=== PATIENT | female | born 1980 | race Caucasian/White ===

== ENCOUNTER 2017-01-12 08:00 | Inpatient (IN) | payer BC ==
[2017-01-12] MEDS ORDERED: Sodium Chloride 0.9% 10 ML Syringe FLUSH PRN (09:59)
[2017-01-12] MEDS ORDERED: ceFAZolin 1 GM in Premix Bag 1 BAG IV ONE (09:59)
[2017-01-12] MEDS ORDERED: Sodium Chloride 0.9% 2.5 ML Syringe FLUSH PRN (09:59)
[2017-01-12] MEDS ORDERED: Citric Acid/Sodium Citrate Solution 30 ML Cup PO SCH (10:00)
[2017-01-12] MEDS: Lactated Ringers 1,000 ML IV SCH ×3 (10:26→11:44)
[2017-01-12] MEDS ORDERED: Octyl 2-Cyanoacrylate 1 Tube ONE ×2 (11:02→13:03)
--- NOTE | 2017-01-12 11:17 | PCM.PREANE ---
Preanesthetic Assessment - Procedure Proposed Procedure: (4th) with BTL (consented and approved) - Anesthesia/Transfusion/Family Hx Anesthesia History: Prior Anesthesia Reaction (easily "pukes", severe pruritis with last ) Type of Anesthesia Reaction: Other (see below) Other Type of Anesthesia Reaction Comment: pt states " I am a bleeder"; also very sensitive to low dose of medications Family History of Anesthesia Reaction: No Transfusion History: No Prior Transfusion(s) - Review of Systems General: No Symptoms Pulmonary: No Symptoms Cardiovascular: No Symptoms Gastrointestinal: No Symptoms, Other (GERD of ) Neurological: No Symptoms Other: Reports: Easy Bleeding (no documented mechanism) - Physical Assessment NPO Status Date: 01/11/17 NPO Status Time: 23:00 Height: 5 ft 2 in Weight: 157 lb ASA Class: 2 Mental Status: Alert & Oriented x3 Airway Class: Mallampati = 1 Dentition: Reports: Normal Dentition Thyro-Mental Finger Breadths: 3 Mouth Opening Finger Breadths: 3 ROM/Head Extension: Full Lungs: Clear to auscultation, Normal respiratory effort Cardiovascular: Regular Rate, Regular Rhythm, No Murmurs - Lab Values: Laboratory Last Values WBC 10.07 K/uL (4.0-11.0) 01/12/17 10:21 RBC 4.07 M/uL (4.30-5.90) L 01/12/17 10:21 Hgb 11.7 g/dL (12.0-16.0) L 01/12/17 10:21 Hct 35.1 % (36.0-46.0) L 01/12/17 10:21 MCV 86.2 fL (80.0-98.0) 01/12/17 10:21 MCH 28.7 pg (27.0-32.0) 01/12/17 10:21 MCHC 33.3 g/dL (31.0-37.0) 01/12/17 10:21 RDW Std Deviation 42.9 fl (28.0-62.0) 01/12/17 10:21 RDW Coeff of Sandra 14 % (11.0-15.0) 01/12/17 10:21 Plt Count 208 K/uL (150-400) 01/12/17 10:21 MPV 10.40 fL (7.40-12.00) 01/12/17 10:21 Nucleated RBC % 0.0 /100WBC 01/12/17 10:21 Nucleated RBCs # 0 K/uL 01/12/17 10:21 POC Glucose 73 mg/dL (60-110) 01/12/17 10:36 - Allergies Allergies/Adverse Reactions: Allergies Allergy/AdvReac Type Severity Reaction Status Date / Time No Known Allergies Allergy Verified 05/27/15 23:27 - Blood Blood Available: No - Anesthesia Plan Free Text/Narrative:: present with exam and interview; plans to be in OR for delivery. Pre-Op Medication Ordered: Antacids - Acknowledgements Anesthesia Type Planned: Spinal Pt an Appropriate Candidate for the Planned Anesthesia: Yes Alternatives and Risks of Anesthesia Discussed w Pt/Guardian: Yes Pt/Guardian Understands and Agrees with Anesthesia Plan: Yes PreAnesthesia Questionnaire Gastrointestinal History: Reports: None Genitourinary History: Reports: None CURRICULUM ASSISTANT History: Reports: Other OB/BYN History: CSx2 Musculoskeletal History: Reports: Fracture Psychiatric History: Reports: Anxiety Endocrine/Metabolic History: Reports: Diabetes, Gestational Other Hematologic History: anemia following pregnancies , states "I am a bleeder" Other Dermatologic History: Exczema - Past Surgical History Head Surgeries/Procedures: Reports: None HEENT Surgical History: Reports: LASIK Other HEENT Surgeries/Procedures: eye surgery(Lasik) GI Surgical History: Reports: Appendectomy Female Surgical History: Reports: Section Other Female Surgeries/Procedures: x 2 Other Musculoskeletal Surgeries/Procedures:: left wrist surgeryx2 - SUBSTANCE USE Smoking Status *Q: Never Smoker Recreational Drug Use History: No - HOME MEDS Home Medications: Home Meds Iron Tab 45 mg PO DAILY 01/07/17 [History] Vit W-Ca,Fe,FA(<1 mg) [ Vitamins] 1 tab PO DAILY 01/07/17 [ History] - CURRENT (IN HOUSE) MEDS Current Meds: Current Medications Citric Acid/Sodium Citrate (Bicitra Solution) 30 ml PO .ONCE CARLOS Lactated Ringer's (Ringers, Lactated) 1,000 mls @ 500 mls/hr IV .BOLUS CARLOS Last Admin: 01/12/17 10:26 Dose: 500 mls/hr Sodium Chloride (Saline Flush) 10 ml FLUSH ASDIRECTED PRN PRN Reason: Keep Vein Open Sodium Chloride (Saline Flush) 2.5 ml FLUSH ASDIRECTED PRN PRN Reason: Keep Vein Open Discontinued Medications Cefazolin Sodium/Dextrose 1 gm (/ Premix) 50 mls @ 100 mls/hr IV ONETIME ONE Stop: 01/12/17 10:28 Octyl Cyanoacrylate (Dermabond Advance) Confirm Administered Dose 1 applic .ROUTE .ST-MED ONE Stop: 01/12/17 11:03
[2017-01-12] MEDS ORDERED: Sodium Chloride 0.9% 20 ML ONE ×2 (11:20→11:58)
[2017-01-12] MEDS ORDERED: ePHEDrine 50 MG/ML SDV ONE (11:20)
[2017-01-12] MEDS ORDERED: Ondansetron 4 MG/2 ML SDV ONE (11:20)
[2017-01-12] MEDS ORDERED: Oxytocin 10 Units/1 ML SDV ONE (11:20)
[2017-01-12] MEDS ORDERED: Morphine PF 10 MG/10 ML SDV ONE (11:21)
[2017-01-12] MEDS ORDERED: ceFAZolin 1 GM Vial ONE (11:58)
[2017-01-12] MEDS ORDERED: Metoclopramide 10 MG/2 ML SDV ONE (12:09)
[2017-01-12] MEDS ORDERED: Lanolin 100% Cream 7 GM Tube TOP PRN (13:05)
[2017-01-12] MEDS ORDERED: diphenhydrAMINE 25 MG Cap PO PRN (13:05)
[2017-01-12] MEDS ORDERED: diphenhydrAMINE 50 MG/ML SDV IVPUSH PRN ×2 (13:05→13:15)
[2017-01-12] MEDS ORDERED: Aluminum Hydroxide/Magnesium Hydroxide/Simethicone Susp 30 ML Cup PO PRN (13:05)
[2017-01-12] MEDS ORDERED: Bisacodyl 10 MG Supp RECTAL PRN (13:05)
[2017-01-12] MEDS ORDERED: Simethicone 80 MG Tab.Chew PO PRN (13:05)
[2017-01-12] MEDS ORDERED: Naloxone 0.4 MG/ML Syringe IVPUSH PRN (13:15)
[2017-01-12] MEDS ORDERED: Nalbuphine 10 MG/1 ML Vial IVPUSH PRN (13:15)
[2017-01-12] MEDS ORDERED: Lactated Ringers 1,000 ML IV SCH (13:15)
--- NOTE | 2017-01-12 13:16 | PCM.OPNOTE ---
- General Post-Op/Procedure Note Date of Surgery/Procedure: 01/12/17 Operative Procedure(s): Repeat LTCS with bilateral salpingectomy Findings: Term female APGARs 8, 9 weight 3380 gm. Intact placenta with 3 v cord. Normal appearing ovaries. Right paratubal cyst noted Pre Op Diagnosis: 39 week IUP. Previous c section, desires repeat. Undesired fertility Post-Op Diagnosis: Same Anesthesia Technique: Spinal Primary Surgeon: Destinee Goff Pathology: fallopian tubes Fluid Replacement, Intraop: 1,800 EBL in mLs: 600 Condition: Good Free Text/Narrative:: Dictation [id number]
[2017-01-12] MEDS: Ketorolac 30 MG/ML SDV IVPUSH SCH ×2 (13:25→19:31)
--- NOTE | 2017-01-12 13:59 | PCM.POSTAN ---
POST ANESTHESIA ASSESSMENT - MENTAL STATUS Mental Status: Alert, Oriented - RESPIRATORY Respiratory Status: respiratory rate WNL, Airway Patent, O2 Saturation Stable - CARDIOVASCULAR CV Status: Pulse Rate WNL, Blood Pressure Stable - GASTROINTESTINAL GI Status: No Symptoms - PAIN Pain Score: 0 (spinal still in effect but receding) - POST OP HYDRATION Hydration Status: Adequate & Stable - OBSERVATIONS Free Text/Narrative:: Return to OB for bonding with new daughter.
[2017-01-12] MEDS ORDERED: fentaNYL 100 MCG/2 ML SDV IVPUSH PRN (15:58)
[2017-01-12] MEDS ORDERED: Acetaminophen/oxyCODONE 325-5 MG Tab PO PRN (15:58)
[2017-01-12] MEDS: Ondansetron 4 MG/2 ML SDV IV PRN (16:19)
[2017-01-12] MEDS: Docusate Sodium 100 MG Cap PO SCH (20:02)
--- NOTE | 2017-01-13 00:44 | OR ---
SURGEON: Destinee Goff M.D. DATE OF PROCEDURE: 01/12/2017 PREOPERATIVE DIAGNOSIS: 1. 39-week intrauterine . 2. Previous section x2, desires repeat. 3. Undesired fertility. POSTOPERATIVE DIAGNOSIS: 1. 39-week intrauterine . 2. Previous section x2, desires repeat. 3. Undesired fertility. PROCEDURES: Repeat low-transverse section with bilateral salpingectomy. ANESTHESIA: Spinal. ESTIMATED BLOOD LOSS: 600 mL. FLUIDS: 1800 mL crystalloid. COMPLICATIONS: None. FINDINGS: Term female, score 8 at 1 minute and 9 at 5 minutes, weight of 3380 g. Intact placenta, 3-vessel cord. Normal-appearing ovaries. Tubes normal- appearing, except for right paratubal cyst. Tubes are fairly significantly adhesed to the ovary, however. There are vesicouterine adhesions, and the lower uterine segment is very thin with peritoneal window identified upon entry. DISPOSITION: The patient to PACU, stable. Infant to nursery. INDICATIONS: Selin is a 36-year-old, G4, P3, at 39 weeks gestation, who presents today for scheduled repeat delivery. She also no longer has desired fertility and has had approval from the [facility] Committee for a tubal ligation at the time of the procedure. Risks of the procedure were discussed. Proper consent was obtained. The patient was taken to the operating room, where she underwent spinal anesthetic. She was placed in the dorsal supine position with leftward tilt. SCDs to the lower extremities. Ramos to gravity. She was prepped and draped in the usual sterile fashion. Received Ancef prophylactically. Time-out was performed. Anesthesia was tested and found to be adequate. Previous Pfannenstiel scar was now excised, and subcutaneous tissue was incised down to the level of the rectus fascia, which was incised in the midline lateralizing on either side sharply. The superior aspect of fascia was tented upward, dissected sharply and bluntly from the underlying muscles. In a similar aspect, this was performed in the inferior aspect of the fascia. Rectus muscles were now in the midline and dissected sharply and bluntly. The peritoneum was tented upward and entered sharply. The rectus muscles of the peritoneum were now gently bluntly lateralized. There were peritoneal adhesions along the uterus. These were gently lysed bluntly and sharply. Self-retaining retractors were now able to be placed after palpating the uterine position and position. At this juncture, there was basically no need for hysterotomy because a large peritoneal window was able to be identified. Therefore, a simple amniotomy was performed. The infant's head was flexed and delivered with fundal pressure being applied, followed by anterior shoulder, posterior shoulder, and remainder of the body. Infant's oropharynx and nares were suctioned. Cord clamped x2 and cut. Infant was handed off to attending nursing staff. Cord arterial, cord venous, cord blood sampling was obtained. Placenta was now delivered. Uterine cavity was cleared of all clot and debris. Hysterotomy was repaired using 0 Vicryl in a continuous running locked fashion, followed by a re-imbricating layer, and re-application along the midline with two [id number] sutures. Hemostasis was thereafter evident. Colonic gutters were cleared of all clot and debris, well irrigated, suctioned, and dried. Hemostasis was once again evident along the hysterotomy. Attention was now turned to performing the salpingectomies. The left fallopian tube was able to be identified. It was isolated with Luz clamps and using the handheld Harmonic, the salpingectomy was performed. There was some bleeding noted at the level of the cornua. This was repaired with two [id number] sutures using 3-0 chromic on an SH needle. Hemostasis was thereafter evident. The region was well irrigated, suctioned, and dried. The attention was now turned to perform the right salpingectomy. The tube was isolated with Luz clamps and excised using Harmonic. Hemostasis was there again evident. The uterus was now irrigated. Posterior aspect did not appear to have any defects or hematoma forming. The salpingectomy sites were inspected and found to be hemostatic. The uterus was returned to the abdominal cavity. Once again inspected the salpingectomy sites. Once again, they were found to be hemostatic. Hysterotomy was once again inspected and found to be hemostatic. Colonic gutters were once again cleared of all clot and debris, well irrigated, suctioned, and dried. The rectus muscle was now reapproximated using 0 Vicryl in an inverted mattress suture technique. Anterior aspect of the muscle and posterior aspect of the fascia were closely inspected. Any areas of oozing were cauterized. The rectus fascia was reapproximated using 0 Vicryl in a continuous running fashion beginning laterally on either side and meeting at the midline. Subcutaneous tissues were well irrigated, suction, and dried. Any areas of oozing were cauterized. The deep subcu tissue was reapproximated using 3-0 plain in a continuous running fashion. The skin edges reapproximated using 3-0 Vicryl on a Tolu needle and then Dermabond glue placed. Uterus remained firm. Sponge, instrument, and needle counts were correct x2. The patient had tolerated this procedure well. She will go to PACU in stable condition. Infant to nursery. The fallopian tube specimen was sent to pathology. MAURILIO / GENET /[id number]
[2017-01-13] MEDS: Ketorolac 30 MG/ML SDV IVPUSH SCH ×3 (01:03→13:42)
--- NOTE | 2017-01-13 08:32 | PCM.PNPP ---
<Joaquina Velasquez - Last Filed: 01/13/17 08:30> - General Info Date of Service: 01/13/17 Functional Status: Reports: Pain Controlled, Tolerating Diet, Ambulating, Urinating - Review of Systems General: Denies: Fever, Weakness, Fatigue Pulmonary: Denies: Shortness of Breath, Pleuritic Chest Pain, Cough Cardiovascular: Denies: Chest Pain, Palpitations, Dyspnea on Exertion Gastrointestinal: Denies: Abdominal Pain Genitourinary: Denies: Dysuria Psychiatric: Reports: No Symptoms - General Info Date of Service: 01/13/17 - Patient Data Vital Signs - most recent: Last Vital Signs Temp 36.8 C 01/13/17 08:00 Pulse 100 01/13/17 08:00 Resp 18 01/13/17 08:00 BP 109/56 L 01/13/17 08:00 Pulse Ox 96 01/13/17 08:00 Weight - most recent: 71.214 kg I&O - last 24 hours: Intake & Output 01/12/17 01/13/17 01/13/17 22:59 06:59 14:59 Intake Total 1600 Output Total 450 1200 1100 Balance -450 -1200 500 Lab Results - last 24 hrs: Laboratory Results - last 24 hr 01/12/17 01/12/17 01/12/17 Range/Units 10:21 10:21 10:36 WBC 10.07 (4.0-11.0) K/uL RBC 4.07 L (4.30-5.90) M/uL Hgb 11.7 L (12.0-16.0) g/dL Hct 35.1 L (36.0-46.0) % MCV 86.2 (80.0-98.0) fL MCH 28.7 (27.0-32.0) pg MCHC 33.3 (31.0-37.0) g/dL RDW Std Deviation 42.9 (28.0-62.0) fl RDW Coeff of Sandra 14 (11.0-15.0) % Plt Count 208 (150-400) K/uL MPV 10.40 (7.40-12.00) fL Nucleated RBC % 0.0 /100WBC Nucleated RBCs # 0 K/uL POC Glucose 73 (60-110) mg/dL Fasting Glucose (60-110) mg/dL Blood Type A NEGATIVE Antibody Screen NEGATIVE 01/13/17 01/13/17 Range/Units 05:01 05:01 WBC (4.0-11.0) K/uL RBC (4.30-5.90) M/uL Hgb 9.6 L (12.0-16.0) g/dL Hct 28.6 L (36.0-46.0) % MCV (80.0-98.0) fL MCH (27.0-32.0) pg MCHC (31.0-37.0) g/dL RDW Std Deviation (28.0-62.0) fl RDW Coeff of Sandra (11.0-15.0) % Plt Count (150-400) K/uL MPV (7.40-12.00) fL Nucleated RBC % /100WBC Nucleated RBCs # K/uL POC Glucose (60-110) mg/dL Fasting Glucose 102 (60-110) mg/dL Blood Type Antibody Screen Med Orders - Current: Current Medications Al Hydroxide/Mg Hydroxide (Mag-Al Plus) 30 ml PO Q8H PRN PRN Reason: Heartburn Bisacodyl (Dulcolax) 10 mg RECTAL .ONCE PRN PRN Reason: Constipation Citric Acid/Sodium Citrate (Bicitra Solution) 30 ml PO .ONCE CARLOS Last Admin: 01/12/17 11:32 Dose: 30 ml Diphenhydramine HCl (Benadryl) 25 mg IVPUSH Q6H PRN PRN Reason: Itching or Nausea Diphenhydramine HCl (Benadryl) 25 mg PO Q4H PRN PRN Reason: Itching Diphenhydramine HCl (Benadryl) 12.5 mg IVPUSH Q4H PRN PRN Reason: Itching Stop: 01/13/17 13:16 Docusate Sodium (Colace) 100 mg PO BID CARLOS Last Admin: 01/12/17 20:02 Dose: 100 mg Emollient Ointment (Lansinoh Hpa) 0 gm TOP ASDIRECTED PRN PRN Reason: Sore Nipples Fentanyl (Sublimaze) 50 mcg IVPUSH .Q60MIN PRN PRN Reason: Breakthough Pain Stop: 01/13/17 15:59 Lactated Ringer's (Ringers, Lactated) 1,000 mls @ 500 mls/hr IV .BOLUS CARLOS Last Admin: 01/12/17 11:44 Dose: 500 mls/hr Lactated Ringer's (Ringers, Lactated) 1,000 mls @ 125 mls/hr IV ASDIRECTED CARLOS Ibuprofen (Motrin) 800 mg PO Q8H PRN PRN Reason: mild pain or fever Ketorolac Tromethamine (Toradol) 30 mg IVPUSH Q6H CARLOS Stop: 01/13/17 13:16 Last Admin: 01/13/17 07:03 Dose: 30 mg Nalbuphine HCl (Nubain) 2.5 mg IVPUSH Q3H PRN PRN Reason: Pruritis Stop: 01/13/17 13:16 Naloxone HCl (Narcan) 0.1 mg IVPUSH ONETIME PRN PRN Reason: Respiratory Depression Stop: 01/13/17 13:16 Ondansetron HCl (Zofran) 4 mg IV Q4H PRN PRN Reason: Nausea/Vomiting Last Admin: 01/12/17 16:19 Dose: 4 mg Oxycodone/Acetaminophen (Percocet 325-5 Mg) 1 tab PO Q4H PRN PRN Reason: Pain (moderate 4-6) Oxycodone/Acetaminophen (Percocet 325-5 Mg) 2 tab PO Q4H PRN PRN Reason: Pain (moderate 4-6) Oxycodone/Acetaminophen (Percocet 325-5 Mg) 1 tab PO Q4H PRN PRN Reason: Breakthrough Pain Stop: 01/13/17 12:00 Last Admin: 01/12/17 16:18 Dose: 1 tab Simethicone (Simethicone) 80 mg PO Q4H PRN PRN Reason: Gas Sodium Chloride (Saline Flush) 10 ml FLUSH ASDIRECTED PRN PRN Reason: Keep Vein Open Sodium Chloride (Saline Flush) 2.5 ml FLUSH ASDIRECTED PRN PRN Reason: Keep Vein Open Discontinued Medications Cefazolin Sodium (Ancef) Confirm Administered Dose 2 gm .ROUTE .STK-MED ONE Stop: 01/12/17 11:59 Ephedrine Sulfate (Ephedrine Sulfate) Confirm Administered Dose 50 mg .ROUTE .STK-MED ONE Stop: 01/12/17 11:21 Glycopyrrolate () Confirm Administered Dose 1 mg .ROUTE .STK-MED ONE Stop: 01/12/17 12:07 Cefazolin Sodium/Dextrose 1 gm (/ Premix) 50 mls @ 100 mls/hr IV ONETIME ONE Stop: 01/12/17 10:28 Last Admin: 01/12/17 14:20 Dose: Not Given Sodium Chloride (Normal Saline) Confirm Administered Dose 20 mls @ as directed .ROUTE .STK-MED ONE Stop: 01/12/17 11:21 Sodium Chloride (Normal Saline) Confirm Administered Dose 20 mls @ as directed .ROUTE .STK-MED ONE Stop: 01/12/17 11:59 Metoclopramide HCl (Reglan) Confirm Administered Dose 10 mg .ROUTE .STK-MED ONE Stop: 01/12/17 12:10 Morphine Sulfate (Duramorph Pf) Confirm Administered Dose 10 mg .ROUTE .STK-MED ONE Stop: 01/12/17 11:22 Octyl Cyanoacrylate (Dermabond Advance) Confirm Administered Dose 1 applic .ROUTE .STK-MED ONE Stop: 01/12/17 11:03 Octyl Cyanoacrylate (Dermabond Advance) Confirm Administered Dose 1 applic .ROUTE .STK-MED ONE Stop: 01/12/17 13:04 Ondansetron HCl (Zofran) Confirm Administered Dose 4 mg .ROUTE .STK-MED ONE Stop: 01/12/17 11:21 Oxytocin (Pitocin) Confirm Administered Dose 20 unit .ROUTE .STK-MED ONE Stop: 01/12/17 11:21 - Interaction Disposition, : [place] in Room with Family Infant Interaction: Holding Infant Feeding: Bottle Fed Support Person: - Recovery Exam Fundal Tone: Firm Fundal Level: At Umbilicus Fundal Placement: Midline Lochia Amount: Scant Lochia Color: Rubra/Red Perineum Description: Intact, Minimal Bruising/Swelling Episiotomy/Laceration: None Bladder Status: Indwelling Catheter in Place Urinary Elimination: Indwelling Catheter - Exam General: alert, oriented Lungs: Clear to Auscultation, Normal Respiratory Effort Cardiovascular: Regular Rate, Regular Rhythm GI/Abdominal Exam: Normal Bowel Sounds Extremities: No Pedal Edema Psy/Mental Status: alert, normal affect, normal mood - Problem List Review Problem List Initiated/Reviewed/Updated: Yes - Assessment Assessment:: POD#1 from RLTCS with bilateral salpingectomy. Minimal pain and lochia. Aim for discharge tomorrow AM. - Plan Plan:: Continue routine post-op cares. Anticipate discharge home tomorrow. <ShellDestinee Evelina - Last Filed: 01/13/17 10:34> - Patient Data Vital Signs - most recent: Last Vital Signs Temp 36.7 C 01/13/17 09:27 Pulse 89 01/13/17 09:27 Resp 17 01/13/17 09:27 BP 110/62 01/13/17 09:27 Pulse Ox 97 01/13/17 09:27 I&O - last 24 hours: Intake & Output 01/12/17 01/13/17 01/13/17 22:59 06:59 14:59 Intake Total 1600 Output Total 450 1200 1100 Balance -450 -1200 500 Lab Results - last 24 hrs: Laboratory Results - last 24 hr 01/12/17 01/12/17 01/13/17 Range/Units 10:21 10:36 05:01 Hgb (12.0-16.0) g/dL Hct (36.0-46.0) % POC Glucose 73 (60-110) mg/dL Fasting Glucose 102 (60-110) mg/dL Blood Type A NEGATIVE Antibody Screen NEGATIVE 01/13/17 Range/Units 05:01 Hgb 9.6 L (12.0-16.0) g/dL Hct 28.6 L (36.0-46.0) % POC Glucose (60-110) mg/dL Fasting Glucose (60-110) mg/dL Blood Type Antibody Screen Med Orders - Current: Current Medications Al Hydroxide/Mg Hydroxide (Mag-Al Plus) 30 ml PO Q8H PRN PRN Reason: Heartburn Bisacodyl (Dulcolax) 10 mg RECTAL .ONCE PRN PRN Reason: Constipation Citric Acid/Sodium Citrate (Bicitra Solution) 30 ml PO .ONCE CARLOS Last Admin: 01/12/17 11:32 Dose: 30 ml Diphenhydramine HCl (Benadryl) 25 mg IVPUSH Q6H PRN PRN Reason: Itching or Nausea Diphenhydramine HCl (Benadryl) 25 mg PO Q4H PRN PRN Reason: Itching Diphenhydramine HCl (Benadryl) 12.5 mg IVPUSH Q4H PRN PRN Reason: Itching Stop: 01/13/17 13:16 Docusate Sodium (Colace) 100 mg PO BID [facility] Last Admin: 01/13/17 08:58 Dose: 100 mg Emollient Ointment (Lansinoh Hpa) 0 gm TOP ASDIRECTED PRN PRN Reason: Sore Nipples Fentanyl (Sublimaze) 50 mcg IVPUSH .Q60MIN PRN PRN Reason: Breakthough Pain Stop: 01/13/17 15:59 Lactated Ringer's (Ringers, Lactated) 1,000 mls @ 500 mls/hr IV .BOLUS [facility] Last Admin: 01/12/17 11:44 Dose: 500 mls/hr Lactated Ringer's (Ringers, Lactated) 1,000 mls @ 125 mls/hr IV ASDIRECTED [facility] Ibuprofen (Motrin) 800 mg PO Q8H PRN PRN Reason: mild pain or fever Ketorolac Tromethamine (Toradol) 30 mg IVPUSH Q6H [facility] Stop: 01/13/17 13:16 Last Admin: 01/13/17 07:03 Dose: 30 mg Nalbuphine HCl (Nubain) 2.5 mg IVPUSH Q3H PRN PRN Reason: Pruritis Stop: 01/13/17 13:16 Naloxone HCl (Narcan) 0.1 mg IVPUSH ONETIME PRN PRN Reason: Respiratory Depression Stop: 01/13/17 13:16 Ondansetron HCl (Zofran) 4 mg IV Q4H PRN PRN Reason: Nausea/Vomiting Last Admin: 01/12/17 16:19 Dose: 4 mg Oxycodone/Acetaminophen (Percocet 325-5 Mg) 1 tab PO Q4H PRN PRN Reason: Pain (moderate 4-6) Oxycodone/Acetaminophen (Percocet 325-5 Mg) 2 tab PO Q4H PRN PRN Reason: Pain (moderate 4-6) Oxycodone/Acetaminophen (Percocet 325-5 Mg) 1 tab PO Q4H PRN PRN Reason: Breakthrough Pain Stop: 01/13/17 12:00 Last Admin: 01/12/17 16:18 Dose: 1 tab Simethicone (Simethicone) 80 mg PO Q4H PRN PRN Reason: Gas Sodium Chloride (Saline Flush) 10 ml FLUSH ASDIRECTED PRN PRN Reason: Keep Vein Open Sodium Chloride (Saline Flush) 2.5 ml FLUSH ASDIRECTED PRN PRN Reason: Keep Vein Open Discontinued Medications Cefazolin Sodium (Ancef) Confirm Administered Dose 2 gm .ROUTE .STK-MED ONE Stop: 01/12/17 11:59 Ephedrine Sulfate (Ephedrine Sulfate) Confirm Administered Dose 50 mg .ROUTE .STK-MED ONE Stop: 01/12/17 11:21 Glycopyrrolate () Confirm Administered Dose 1 mg .ROUTE .STK-MED ONE Stop: 01/12/17 12:07 Cefazolin Sodium/Dextrose 1 gm (/ Premix) 50 mls @ 100 mls/hr IV ONETIME ONE Stop: 01/12/17 10:28 Last Admin: 01/12/17 14:20 Dose: Not Given Sodium Chloride (Normal Saline) Confirm Administered Dose 20 mls @ as directed .ROUTE .STK-MED ONE Stop: 01/12/17 11:21 Sodium Chloride (Normal Saline) Confirm Administered Dose 20 mls @ as directed .ROUTE .STK-MED ONE Stop: 01/12/17 11:59 Metoclopramide HCl (Reglan) Confirm Administered Dose 10 mg .ROUTE .STK-MED ONE Stop: 01/12/17 12:10 Morphine Sulfate (Duramorph Pf) Confirm Administered Dose 10 mg .ROUTE .STK-MED ONE Stop: 01/12/17 11:22 Octyl Cyanoacrylate (Dermabond Advance) Confirm Administered Dose 1 applic .ROUTE .STK-MED ONE Stop: 01/12/17 11:03 Octyl Cyanoacrylate (Dermabond Advance) Confirm Administered Dose 1 applic .ROUTE .STK-MED ONE Stop: 01/12/17 13:04 Ondansetron HCl (Zofran) Confirm Administered Dose 4 mg .ROUTE .STK-MED ONE Stop: 01/12/17 11:21 Oxytocin (Pitocin) Confirm Administered Dose 20 unit .ROUTE .STK-MED ONE Stop: 01/12/17 11:21 - My Orders Last 24 Hours: My Active Orders 01/12/17 09:59 Patient Status [ADT] Routine Up ad [place] [RC] ASDIRECTED Vital Signs [RC] Q4H Sodium Chloride 0.9% [Saline Flush] 10 ml FLUSH ASDIRECTED PRN Sodium Chloride 0.9% [Saline Flush] 2.5 ml FLUSH ASDIRECTED PRN Peripheral IV Insertion Adult [OM.PC] Routine Schedule Procedure [COMM] Per Unit Routine Resuscitation Status Routine 01/12/17 10:00 Citric Acid/Sodium Citrate [Bicitra Solution] 30 ml PO .ONCE Lactated Ringers [Ringers, Lactated] 1,000 ml IV .BOLUS 01/12/17 10:01 Notify Provider Vital Signs [RC] PRN 01/12/17 13:05 Ambulate [RC] PER UNIT ROUTINE Communication Order [RC] PER UNIT ROUTINE Communication Order [RC] PER UNIT ROUTINE Communication Order [RC] Per Unit Routine May Shower [RC] ASDIRECTED Notify Provider Intake and Out [RC] ASDIRECTED Notify Provider Vital Signs [RC] ASDIRECTED RT Incentive Spirometry [RC] Q2HWA Vital Signs [RC] PER UNIT ROUTINE Acetaminophen/oxyCODONE [Percocet 325-5 MG] 1 tab PO Q4H PRN Acetaminophen/oxyCODONE [Percocet 325-5 MG] 2 tab PO Q4H PRN Alum Hydrox/Mag Hydrox/Simeth [Mag-Al Plus] 30 ml PO Q8H PRN Bisacodyl [Dulcolax] 10 mg RECTAL .ONCE PRN Ibuprofen [Motrin] 800 mg PO Q8H PRN Lanolin [Lansinoh HPA] See Dose Instructions TOP ASDIRECTED PRN Ondansetron [Zofran] 4 mg IV Q4H PRN Simethicone 80 mg PO Q4H PRN diphenhydrAMINE [Benadryl] 25 mg IVPUSH Q6H PRN diphenhydrAMINE [Benadryl] 25 mg PO Q4H PRN Abdominal Binder [OM.PC] Routine Assess Lochia [WOMSER] Per Unit Routine Assess Uterine Involution [WOMSER] Per Unit Routine Breast Pump [WOMSER] Per Unit Routine Heat Therapy [OM.PC] Routine Ice Therapy [OM.PC] Routine Peripheral IV Discontinue [OM.PC] Routine Sequential Compression Device [OM.PC] Per Unit Routine 01/12/17 13:06 Antiembolic Devices [RC] PER UNIT ROUTINE 01/12/17 13:15 Ketorolac [Toradol] 30 mg IVPUSH Q6H Lactated Ringers [Ringers, Lactated] 1,000 ml IV ASDIRECTED 01/12/17 21:00 Docusate Sodium [Colace] 100 mg PO BID 01/12/17 Dinner Regular Diet [DIET] - Plan Plan:: patient seen and examined--agree with above.Dr Caldwell will cover patient in my absence
[2017-01-13] MEDS: Docusate Sodium 100 MG Cap PO SCH ×2 (08:58→20:08)
--- NOTE | 2017-01-13 13:42 | PCM48HPAN ---
Post Anesthesia Note - EVALUATION WITHIN 48HRS OF ANESTHETIC Vital Signs in Normal Range: Yes Patient Participated in Evaluation: Yes Respiratory Function Stable: Yes Airway Patent: Yes Cardiovascular Function Stable: Yes Hydration Status Stable: Yes Pain Control Satisfactory: Yes Nausea and Vomiting Control Satisfactory: Yes (No nausea (hx in all prior encounters)) Mental Status Recovered: Yes - COMMENTS/OBSERVATIONS Free Text/Narrative:: No problems. Mom and baby doing very well.
[2017-01-13] MEDS: Ondansetron 4 MG/2 ML SDV IV PRN (13:43)
[2017-01-13] MEDS: Acetaminophen/oxyCODONE 325-5 MG Tab PO PRN ×4 (15:47→20:11)
[2017-01-13] MEDS: Ibuprofen 800 MG Tab PO PRN (22:12)
[2017-01-14] MEDS: Acetaminophen/oxyCODONE 325-5 MG Tab PO PRN ×2 (02:58→10:08)
[2017-01-14] MEDS: Ibuprofen 800 MG Tab PO PRN (06:53)
[2017-01-14 08:21] VITALS: BP 112/59
--- NOTE | 2017-01-14 08:42 | PCM.PNPP ---
[id number] Status: Reports: Pain Controlled, Tolerating Diet, Ambulating - Review of Systems General: Denies: Fever, Weakness, Fatigue Pulmonary: Denies: Shortness of Breath, Pleuritic Chest Pain, Cough Cardiovascular: Denies: Chest Pain, Palpitations, Dyspnea on Exertion Gastrointestinal: Denies: Abdominal Pain Genitourinary: Denies: Dysuria Psychiatric: Reports: No Symptoms - General Info Date of Service: 01/14/17 - Patient Data Vital Signs - most recent: Last Vital Signs Temp 36.3 C 01/14/17 08:00 Pulse 66 01/14/17 08:00 Resp 18 01/14/17 08:00 BP 112/59 L 01/14/17 08:00 Pulse Ox 98 01/14/17 08:00 Weight - most recent: 71.214 kg I&O - last 24 hours: Intake & Output 01/13/17 01/14/17 01/14/17 22:59 06:59 14:59 Intake Total 440 1260 Output Total 1650 3900 Balance -1210 -2640 Med Orders - Current: Current Medications Al Hydroxide/Mg Hydroxide (Mag-Al Plus) 30 ml PO Q8H PRN PRN Reason: Heartburn Bisacodyl (Dulcolax) 10 mg RECTAL .ONCE PRN PRN Reason: Constipation Citric Acid/Sodium Citrate (Bicitra Solution) 30 ml PO .ONCE CARLOS Last Admin: 01/12/17 11:32 Dose: 30 ml Diphenhydramine HCl (Benadryl) 25 mg IVPUSH Q6H PRN PRN Reason: Itching or Nausea Diphenhydramine HCl (Benadryl) 25 mg PO Q4H PRN PRN Reason: Itching Docusate Sodium (Colace) 100 mg PO BID CARLOS Last Admin: 01/13/17 20:08 Dose: 100 mg Emollient Ointment (Lansinoh Hpa) 0 gm TOP ASDIRECTED PRN PRN Reason: Sore Nipples Lactated Ringer's (Ringers, Lactated) 1,000 mls @ 500 mls/hr IV .BOLUS CARLOS Last Admin: 01/12/17 11:44 Dose: 500 mls/hr Lactated Ringer's (Ringers, Lactated) 1,000 mls @ 125 mls/hr IV ASDIRECTED CARLOS Ibuprofen (Motrin) 800 mg PO Q8H PRN PRN Reason: mild pain or fever Last Admin: 01/14/17 06:53 Dose: 800 mg Ondansetron HCl (Zofran) 4 mg IV Q4H PRN PRN Reason: Nausea/Vomiting Last Admin: 01/13/17 13:43 Dose: 4 mg Oxycodone/Acetaminophen (Percocet 325-5 Mg) 1 tab PO Q4H PRN PRN Reason: Pain (moderate 4-6) Last Admin: 01/14/17 02:58 Dose: 1 tab Oxycodone/Acetaminophen (Percocet 325-5 Mg) 2 tab PO Q4H PRN PRN Reason: Pain (moderate 4-6) Simethicone (Simethicone) 80 mg PO Q4H PRN PRN Reason: Gas Sodium Chloride (Saline Flush) 10 ml FLUSH ASDIRECTED PRN PRN Reason: Keep Vein Open Sodium Chloride (Saline Flush) 2.5 ml FLUSH ASDIRECTED PRN PRN Reason: Keep Vein Open Discontinued Medications Cefazolin Sodium (Ancef) Confirm Administered Dose 2 gm .ROUTE .STK-MED ONE Stop: 01/12/17 11:59 Diphenhydramine HCl (Benadryl) 12.5 mg IVPUSH Q4H PRN PRN Reason: Itching Stop: 01/13/17 13:16 Ephedrine Sulfate (Ephedrine Sulfate) Confirm Administered Dose 50 mg .ROUTE .STK-MED ONE Stop: 01/12/17 11:21 Fentanyl (Sublimaze) 50 mcg IVPUSH .Q60MIN PRN PRN Reason: Breakthough Pain Stop: 01/13/17 15:59 Glycopyrrolate () Confirm Administered Dose 1 mg .ROUTE .STK-MED ONE Stop: 01/12/17 12:07 Cefazolin Sodium/Dextrose 1 gm (/ Premix) 50 mls @ 100 mls/hr IV ONETIME ONE Stop: 01/12/17 10:28 Last Admin: 01/12/17 14:20 Dose: Not Given Sodium Chloride (Normal Saline) Confirm Administered Dose 20 mls @ as directed .ROUTE .STK-MED ONE Stop: 01/12/17 11:21 Sodium Chloride (Normal Saline) Confirm Administered Dose 20 mls @ as directed .ROUTE .STK-MED ONE Stop: 01/12/17 11:59 Ketorolac Tromethamine (Toradol) 30 mg IVPUSH Q6H CRALOS Stop: 01/13/17 13:16 Last Admin: 01/13/17 13:42 Dose: 30 mg Metoclopramide HCl (Reglan) Confirm Administered Dose 10 mg .ROUTE .STK-MED ONE Stop: 01/12/17 12:10 Morphine Sulfate (Duramorph Pf) Confirm Administered Dose 10 mg .ROUTE .STK-MED ONE Stop: 01/12/17 11:22 Nalbuphine HCl (Nubain) 2.5 mg IVPUSH Q3H PRN PRN Reason: Pruritis Stop: 01/13/17 13:16 Naloxone HCl (Narcan) 0.1 mg IVPUSH ONETIME PRN PRN Reason: Respiratory Depression Stop: 01/13/17 13:16 Octyl Cyanoacrylate (Dermabond Advance) Confirm Administered Dose 1 applic .ROUTE .STK-MED ONE Stop: 01/12/17 11:03 Octyl Cyanoacrylate (Dermabond Advance) Confirm Administered Dose 1 applic .ROUTE .STK-MED ONE Stop: 01/12/17 13:04 Ondansetron HCl (Zofran) Confirm Administered Dose 4 mg .ROUTE .STK-MED ONE Stop: 01/12/17 11:21 Oxycodone/Acetaminophen (Percocet 325-5 Mg) 1 tab PO Q4H PRN PRN Reason: Breakthrough Pain Stop: 01/13/17 12:00 Last Admin: 01/12/17 16:18 Dose: 1 tab Oxytocin (Pitocin) Confirm Administered Dose 20 unit .ROUTE .STK-MED ONE Stop: 01/12/17 11:21 - Interaction Disposition, : in Room with Family Interaction: Holding Infant Feeding: Bottle Fed Support Person: - Recovery Exam Fundal Tone: Firm Fundal Level: At Umbilicus Fundal Placement: Midline Lochia Amount: Scant Lochia Color: Rubra/Red Perineum Description: Intact, Minimal Bruising/Swelling Episiotomy/Laceration: None Bladder Status: Indwelling Catheter in Place Urinary Elimination: Indwelling Catheter - Exam General: alert, oriented Lungs: Clear to Auscultation, Normal Respiratory Effort GI/Abdominal Exam: Normal Bowel Sounds, Soft, Non-Tender Extremities: Pedal Edema (trace) Psy/Mental Status: alert, normal affect, normal mood - Problem List Review Problem List Initiated/Reviewed/Updated: Yes - Assessment Assessment:: POD#2 from [facility] with bilateral salpingectomy. Minimal pain and lochia. Rx for Percocet has been sent to pharmacy by Dr. Goff. Discharge home today. - Plan Plan:: Discharge instructions reviewed. Nothing in the vagina for 6 weeks. RX for Percocet to use as needed for pain. No lifting greater than 10lbs for 6 weeks. Instructed patient to call if she develops fever greater than 101 or bleeding through a large pad an hour. F/U with [facility] in 2 and 6 weeks <Yuliet Caldwell - Last Filed: 01/14/17 10:05> - Patient Data Vital Signs - most recent: Last Vital Signs Temp 36.3 C 01/14/17 08:00 Pulse 66 01/14/17 08:00 Resp 18 01/14/17 08:00 BP 112/59 L 01/14/17 08:00 Pulse Ox 98 01/14/17 08:00 I&O - last 24 hours: Intake & Output 01/13/17 01/14/17 01/14/17 22:59 06:59 14:59 Intake Total 440 1260 Output Total 1650 3900 Balance -1210 -2640 Med Orders - Current: Current Medications Al Hydroxide/Mg Hydroxide (Mag-Al Plus) 30 ml PO Q8H PRN PRN Reason: Heartburn Bisacodyl (Dulcolax) 10 mg RECTAL .ONCE PRN PRN Reason: Constipation Citric Acid/Sodium Citrate (Bicitra Solution) 30 ml PO .ONCE [facility] Last Admin: 01/12/17 11:32 Dose: 30 ml Diphenhydramine HCl (Benadryl) 25 mg IVPUSH Q6H PRN PRN Reason: Itching or Nausea Diphenhydramine HCl (Benadryl) 25 mg PO Q4H PRN PRN Reason: Itching Docusate Sodium (Colace) 100 mg PO BID [facility] Last Admin: 01/14/17 09:47 Dose: 100 mg Emollient Ointment (Lansinoh Hpa) 0 gm TOP ASDIRECTED PRN PRN Reason: Sore Nipples Lactated Ringer's (Ringers, Lactated) 1,000 mls @ 500 mls/hr IV .BOLUS CARLOS Last Admin: 01/12/17 11:44 Dose: 500 mls/hr Lactated Ringer's (Ringers, Lactated) 1,000 mls @ 125 mls/hr IV ASDIRECTED CARLOS Ibuprofen (Motrin) 800 mg PO Q8H PRN PRN Reason: mild pain or fever Last Admin: 01/14/17 06:53 Dose: 800 mg Ondansetron HCl (Zofran) 4 mg IV Q4H PRN PRN Reason: Nausea/Vomiting Last Admin: 01/13/17 13:43 Dose: 4 mg Oxycodone/Acetaminophen (Percocet 325-5 Mg) 1 tab PO Q4H PRN PRN Reason: Pain (moderate 4-6) Last Admin: 01/14/17 02:58 Dose: 1 tab Oxycodone/Acetaminophen (Percocet 325-5 Mg) 2 tab PO Q4H PRN PRN Reason: Pain (moderate 4-6) Simethicone (Simethicone) 80 mg PO Q4H PRN PRN Reason: Gas Sodium Chloride (Saline Flush) 10 ml FLUSH ASDIRECTED PRN PRN Reason: Keep Vein Open Sodium Chloride (Saline Flush) 2.5 ml FLUSH ASDIRECTED PRN PRN Reason: Keep Vein Open Discontinued Medications Cefazolin Sodium (Ancef) Confirm Administered Dose 2 gm .ROUTE .STK-MED ONE Stop: 01/12/17 11:59 Diphenhydramine HCl (Benadryl) 12.5 mg IVPUSH Q4H PRN PRN Reason: Itching Stop: 01/13/17 13:16 Ephedrine Sulfate (Ephedrine Sulfate) Confirm Administered Dose 50 mg .ROUTE .STK-MED ONE Stop: 01/12/17 11:21 Fentanyl (Sublimaze) 50 mcg IVPUSH .Q60MIN PRN PRN Reason: Breakthough Pain Stop: 01/13/17 15:59 Glycopyrrolate () Confirm Administered Dose 1 mg .ROUTE .STK-MED ONE Stop: 01/12/17 12:07 Cefazolin Sodium/Dextrose 1 gm (/ Premix) 50 mls @ 100 mls/hr IV ONETIME ONE Stop: 01/12/17 10:28 Last Admin: 01/12/17 14:20 Dose: Not Given Sodium Chloride (Normal Saline) Confirm Administered Dose 20 mls @ as directed .ROUTE .STK-MED ONE Stop: 01/12/17 11:21 Sodium Chloride (Normal Saline) Confirm Administered Dose 20 mls @ as directed .ROUTE .STK-MED ONE Stop: 01/12/17 11:59 Ketorolac Tromethamine (Toradol) 30 mg IVPUSH Q6H CARLOS Stop: 01/13/17 13:16 Last Admin: 01/13/17 13:42 Dose: 30 mg Metoclopramide HCl (Reglan) Confirm Administered Dose 10 mg .ROUTE .STK-MED ONE Stop: 01/12/17 12:10 Morphine Sulfate (Duramorph Pf) Confirm Administered Dose 10 mg .ROUTE .STK-MED ONE Stop: 01/12/17 11:22 Nalbuphine HCl (Nubain) 2.5 mg IVPUSH Q3H PRN PRN Reason: Pruritis Stop: 01/13/17 13:16 Naloxone HCl (Narcan) 0.1 mg IVPUSH ONETIME PRN PRN Reason: Respiratory Depression Stop: 01/13/17 13:16 Octyl Cyanoacrylate (Dermabond Advance) Confirm Administered Dose 1 applic .ROUTE .STK-MED ONE Stop: 01/12/17 11:03 Octyl Cyanoacrylate (Dermabond Advance) Confirm Administered Dose 1 applic .ROUTE .STK-MED ONE Stop: 01/12/17 13:04 Ondansetron HCl (Zofran) Confirm Administered Dose 4 mg .ROUTE .STK-MED ONE Stop: 01/12/17 11:21 Oxycodone/Acetaminophen (Percocet 325-5 Mg) 1 tab PO Q4H PRN PRN Reason: Breakthrough Pain Stop: 01/13/17 12:00 Last Admin: 01/12/17 16:18 Dose: 1 tab Oxytocin (Pitocin) Confirm Administered Dose 20 unit .ROUTE .STK-MED ONE Stop: 01/12/17 11:21 - Problem List Review Problem List Initiated/Reviewed/Updated: Yes - Plan Plan:: Patient seen and examined, agree with above.
[2017-01-14] MEDS: Docusate Sodium 100 MG Cap PO SCH (09:47)
== END 2017-01-14 14:00 | disposition home or self-care (01) | DRG 540 ==
LOC: MW.OB 09:37 → MW.MS 01-13 07:41
PROVIDERS: ADMIT Obstetrics & Gynecology; ATTEND Obstetrics & Gynecology
PROC: 10D00Z1 Extraction of Products of Conception, Low, Open Approach (ICD-10-PCS; principal; 2017-01-12)
PROC: 0UT77ZZ Resection of Bilateral Fallopian Tubes, Via Natural or Artificial Opening (ICD-10-PCS; 2017-01-12)
DX: O34.211 Maternal care for low transverse scar from previous cesarean delivery (principal); O09.523 Supervision of elderly multigravida, third trimester; Z3A.39 39 weeks gestation of pregnancy; Z37.0 Single live birth; Z30.2 Encounter for sterilization
CPT/HCPCS: 01961; 36415; 59025; 82947; 82962; 85014; 85018; 85027; 86850; 86900; 86901; 88302; A9270-GY; J0690; J1885; J2270; J2405; J2590; J2765; J7120

== ENCOUNTER 2023-12-30 09:53 | Emergency (ER) | payer BC ==
[2023-12-30 10:06] VITALS: BP 132/71; PULSE 98
[2023-12-30 11:06] LABS: BASOPHILS ABSOLUTE AUTO 0.04 K/uL (0.00-0.20); BASOPHILS PERCENT AUTO 0.5 % (0.0-1.0); EOSINOPHILS ABSOLUTE AUTO 0.28 K/uL (0.00-0.45); EOSINOPHILS PERCENT AUTO 3.5 % (0.0-6.0); HEMATOCRIT 38.2 % (37.0-47.0); HEMOGLOBIN 13.5 g/dL (12.0-16.0); IMMATURE GRAN ABSOLUTE AUTO 0.05 K/uL (0.00-0.05); IMMATURE GRAN PERCENT AUTO 0.6 % (0.0-0.4); LYMPHOCYTES ABSOLUTE AUTO 0.84 K/uL (1.00-4.80); LYMPHOCYTES PERCENT AUTO 10.4 % (24.0-44.0); MEAN CORPUSCULAR HEMOGLOBIN 29.6 pg (28.0-32.0); MEAN CORPUSCULAR HGB CONC 35.3 g/dL (32.0-36.0); MEAN CORPUSCULAR VOLUME 83.8 fL (83.0-99.0); MEAN PLATELET VOLUME 8.8 fL (9.4-12.3); MONOCYTES ABSOLUTE AUTO 0.45 K/uL (0.00-0.80); MONOCYTES PERCENT AUTO 5.5 % (0.0-8.0); NEUTROPHILS ABSOLUTE AUTO 6.45 K/uL (1.80-7.70); NEUTROPHILS PERCENT AUTO 79.5 % (41.0-71.0); PLATELET COUNT,PLT 314 K/uL (150-400); RED BLOOD CELL COUNT 4.56 M/uL (4.10-5.30); WHITE BLOOD CELL COUNT,WBC 8.11 K/uL (3.9-11.3)
[2023-12-30 11:29] LABS: A/G RATIO 1.2 (0.9-1.6); ALBUMIN 3.6 g/dL (3.4-5.0); BILIRUBIN TOTAL 0.5 mg/dL (0.2-1.0); CALCIUM 8.6 mg/dL (8.5-10.1); CARBON DIOXIDE,CO2 25.8 mmol/L (21.0-32.0); EST CRCL DRUG DOSING (CG) 54.74 mL/min; MAGNESIUM 1.7 mg/dL (1.8-2.4); POTASSIUM,K 4.1 mmol/L (3.5-5.1); PROTEIN TOTAL,TP 6.7 g/dL (6.4-8.2)
== END 2023-12-30 12:40 | disposition home or self-care (01) ==
LOC: MW.ED 09:53
DX: M19.90 Unspecified osteoarthritis, unspecified site (principal); E83.42 Hypomagnesemia; Z75.8 Other problems related to medical facilities and other health care
CPT/HCPCS: 36415; 80053; 83735; 84703; 85025; 86308; 87651-QW; 99283

== ENCOUNTER 2024-04-10 06:58 | Day surgery (SDC) | payer BC ==
[~2024-04-10 06:58] MED LIST: Albuterol 0.083% 2.5 MG/3 ML Neb Soln NEB PRN; Metoclopramide 10 MG/2 ML SDV IVPUSH PRN; Morphine 2 MG/ML SYRINGE IVPUSH PRN; Naloxone 0.4 MG/ML SDV IVPUSH PRN; Ondansetron 4 MG/2 ML SDV IVPUSH PRN; Phenylephrine HCl In 0.9% NaCl 1 MG/10 ML Syringe IVPUSH PRN; Scopalamine 1mg/3day Transdermal Patch TOP ONE; Sodium Chloride 0.9% 10 ML Syringe FLUSH PRN; Sodium Chloride 0.9% 2.5 ML Syringe FLUSH PRN; Sodium Chloride 0.9% 20 ML SDV IV PRN; droPERidol 5 MG/2 ML SDV IVPUSH PRN; fentaNYL 50 MCG/ML SDV IVPUSH PRN
[2024-04-10] MEDS: Scopalamine 1mg/3day Transdermal Patch TOP ONE (07:10)
[2024-04-10 07:12] LABS: BASOPHILS ABSOLUTE AUTO 0.05 K/uL (0.00-0.20); BASOPHILS PERCENT AUTO 0.7 % (0.0-1.0); EOSINOPHILS PERCENT AUTO 5.7 % (0.0-6.0); HEMATOCRIT 42.1 % (37.0-47.0); HEMOGLOBIN 14.5 g/dL (12.0-16.0); IMMATURE GRAN ABSOLUTE AUTO 0.01 K/uL (0.00-0.05); IMMATURE GRAN PERCENT AUTO 0.1 % (0.0-0.4); LYMPHOCYTES PERCENT AUTO 31.6 % (24.0-44.0); MEAN CORPUSCULAR HEMOGLOBIN 29.4 pg (28.0-32.0); MEAN CORPUSCULAR HGB CONC 34.4 g/dL (32.0-36.0); MEAN CORPUSCULAR VOLUME 85.4 fL (83.0-99.0); MEAN PLATELET VOLUME 9.2 fL (9.4-12.3); MONOCYTES ABSOLUTE AUTO 0.53 K/uL (0.00-0.80); MONOCYTES PERCENT AUTO 7.6 % (0.0-8.0); NEUTROPHILS ABSOLUTE AUTO 3.77 K/uL (1.80-7.70); NEUTROPHILS PERCENT AUTO 54.3 % (41.0-71.0); PLATELET COUNT,PLT 314 K/uL (150-400); RED BLOOD CELL COUNT 4.93 M/uL (4.10-5.30); WHITE BLOOD CELL COUNT,WBC 6.96 K/uL (3.9-11.3)
[2024-04-10] MEDS ORDERED: Bupivacaine 0.25% 30 ML SDV ONE (07:20)
[2024-04-10] MEDS ORDERED: Methylene Blue 100 MG/10 ML SDV ONE (07:20)
[2024-04-10] MEDS ORDERED: Midazolam 1 MG/ML 2 ML SDV ONE (07:28)
[2024-04-10] MEDS ORDERED: Dexamethasone 4 MG/ML 5 ML MDV ONE (07:28)
[2024-04-10] MEDS ORDERED: Ondansetron 4 MG/2 ML SDV ONE ×2 (07:28→08:28)
[2024-04-10] MEDS ORDERED: fentaNYL 100 MCG/2 ML SDV ONE (07:28)
[2024-04-10] MEDS ORDERED: Rocuronium Bromide 50 MG/5 ML Syringe ONE ×2 (07:28→09:36)
[2024-04-10] MEDS ORDERED: Lidocaine 2% 5 ML SDV ONE (07:28)
[2024-04-10] MEDS ORDERED: Propofol 200 MG/20 ML SDV ONE (07:28)
[2024-04-10 07:29] LABS: CALCIUM 8.7 mg/dL (8.5-10.1); CARBON DIOXIDE,CO2 29.8 mmol/L (21.0-32.0); CREATININE 1.1 mg/dL (0.6-1.0); EST CRCL DRUG DOSING (CG) 49.25 mL/min; POTASSIUM,K 3.8 mmol/L (3.5-5.1)
[2024-04-10] MEDS: Lactated Ringers 1,000 ML IV SCH (07:34)
[2024-04-10] MEDS ORDERED: Ropivacaine 0.5% 5 MG/ML 30 ML SDV ONE (07:48)
[2024-04-10] MEDS ORDERED: dexmedeTOMIDine HCl 200 MCG/2 ML SDV ONE (07:50)
[2024-04-10] MEDS ORDERED: Water For Injection, Sterile 40 ML ONE (07:50)
[2024-04-10] MEDS ORDERED: ceFAZolin 1 GM Vial ONE (08:21)
[2024-04-10] MEDS ORDERED: Ketorolac 30 MG/ML SDV ONE (08:35)
[2024-04-10] MEDS ORDERED: Sugammadex Sodium 200 MG/2 ML VIAL IV ONE (08:35)
[2024-04-10] MEDS ORDERED: Furosemide 40 MG/4 ML VIAL ONE (09:21)
[2024-04-10] MEDS ORDERED: Fluorescein 5 ML Vial ONE (09:21)
[2024-04-10] MEDS ORDERED: Famotidine 20 MG/2 ML SDV ONE (10:25)
[2024-04-10] MEDS: HYDROmorphone 1 MG/ML Syringe IVPUSH PRN (10:53)
[2024-04-10] MEDS ORDERED: Ketorolac 30 MG/ML SDV IVPUSH PRN (12:56)
[2024-04-10] MEDS ORDERED: Morphine 4 MG/ML Syringe IVPUSH PRN (12:56)
[2024-04-10] MEDS ORDERED: Ondansetron 4 MG/2 ML SDV IVPUSH PRN (12:56)
[2024-04-10] MEDS ORDERED: Acetaminophen/oxyCODONE 325-5 MG Tab PO PRN (12:56)
[2024-04-10] MEDS ORDERED: Promethazine 25 MG/ML SDV IM PRN (12:56)
[2024-04-10] MEDS ORDERED: Lactated Ringers 1,000 ML IV SCH (13:00)
[2024-04-10] MEDS: Ketorolac 30 MG/ML SDV IVPUSH ONE (14:00)
[2024-04-10] MEDS: ceFAZolin 1 GM in Sodium Chloride 0.9% 50 ML IV ONE (14:16)
[2024-04-10] MEDS: Acetaminophen/oxyCODONE 325-5 MG Tab PO PRN (18:15)
[2024-04-10] MEDS: Docusate Sodium 100 MG Cap PO SCH (19:40)
[2024-04-11 05:31] LABS: BASOPHILS ABSOLUTE AUTO 0.03 K/uL (0.00-0.20); BASOPHILS PERCENT AUTO 0.4 % (0.0-1.0); EOSINOPHILS ABSOLUTE AUTO 0.06 K/uL (0.00-0.45); EOSINOPHILS PERCENT AUTO 0.7 % (0.0-6.0); HEMATOCRIT 36.3 % (37.0-47.0); HEMOGLOBIN 12.4 g/dL (12.0-16.0); IMMATURE GRAN ABSOLUTE AUTO 0.02 K/uL (0.00-0.05); IMMATURE GRAN PERCENT AUTO 0.2 % (0.0-0.4); LYMPHOCYTES ABSOLUTE AUTO 1.87 K/uL (1.00-4.80); LYMPHOCYTES PERCENT AUTO 21.8 % (24.0-44.0); MEAN CORPUSCULAR HEMOGLOBIN 29.2 pg (28.0-32.0); MEAN CORPUSCULAR HGB CONC 34.2 g/dL (32.0-36.0); MEAN CORPUSCULAR VOLUME 85.6 fL (83.0-99.0); MEAN PLATELET VOLUME 9.7 fL (9.4-12.3); MONOCYTES ABSOLUTE AUTO 0.71 K/uL (0.00-0.80); MONOCYTES PERCENT AUTO 8.3 % (0.0-8.0); NEUTROPHILS ABSOLUTE AUTO 5.87 K/uL (1.80-7.70); NEUTROPHILS PERCENT AUTO 68.6 % (41.0-71.0); PLATELET COUNT,PLT 274 K/uL (150-400); RED BLOOD CELL COUNT 4.24 M/uL (4.10-5.30); WHITE BLOOD CELL COUNT,WBC 8.56 K/uL (3.9-11.3)
[2024-04-11 05:51] LABS: CALCIUM 8.2 mg/dL (8.5-10.1); CARBON DIOXIDE,CO2 27.7 mmol/L (21.0-32.0); EST CRCL DRUG DOSING (CG) 54.17 mL/min; POTASSIUM,K 3.4 mmol/L (3.5-5.1)
[2024-04-11 08:48] VITALS: BP 117/69; PULSE 69
== END 2024-04-11 11:35 | disposition home or self-care (01) ==
LOC: MW.SDS 06:58 → MW.MS 12:06 → MW.SDS 04-11 11:35
PROVIDERS: ATTEND Obstetrics & Gynecology
DX: N73.6 Female pelvic peritoneal adhesions (postinfective) (principal); D25.9 Leiomyoma of uterus, unspecified
CPT/HCPCS: 36415; 58550; 80048; 84703; 85025; 86850; 86900; 86901; A9270; J0131; J0665; J0690; J1100; J1171; J1885; J1940; J2250; J2704; J2795; J3010; J3490; J7120; Q9968; 00944; 64488; J2405